=== PATIENT | female | born 1965 | race Caucasian/White ===

== ENCOUNTER 2023-04-03 10:56 | Day surgery (SDC) | payer OTHER ==
[~2023-04-03] VITALS: Ht 149.9 cm; Wt 55.6 kg
[~2023-04-03 10:56] MED LIST: AMOX500 PO; HYDACE5 PO; LOVA40 PO; RANI150 PO
[2023-04-03] MEDS ORDERED: VENL150ER (11:31)
[2023-04-03 13:31] VITALS: BP 123/67
== END 2023-04-03 13:33 | disposition home or self-care (01) ==
LOC: ORSCSDS 10:56
PROVIDERS: Internal Medicine Gastroenterology
PROC: 0DB58ZX Excision of Esophagus, Via Natural or Artificial Opening Endoscopic, Diagnostic (ICD-10-PCS; principal; 2023-04-03 12:30)
PROC: 0D758ZZ Dilation of Esophagus, Via Natural or Artificial Opening Endoscopic (ICD-10-PCS; principal; 2023-04-03 12:30)
PROC: 0DBN8ZX Excision of Sigmoid Colon, Via Natural or Artificial Opening Endoscopic, Diagnostic (ICD-10-PCS; principal; 2023-04-03 12:30)
PROC: 0DBK8ZX Excision of Ascending Colon, Via Natural or Artificial Opening Endoscopic, Diagnostic (ICD-10-PCS; principal; 2023-04-03 12:30)
PROC: 0DBH8ZX Excision of Cecum, Via Natural or Artificial Opening Endoscopic, Diagnostic (ICD-10-PCS; principal; 2023-04-03 12:30)
DX: R13.10 Dysphagia, unspecified (principal); R19.4 Change in bowel habit; Z86.010 Personal history of colon polyps; Z80.0 Family history of malignant neoplasm of digestive organs; D12.0 Benign neoplasm of cecum; D12.2 Benign neoplasm of ascending colon; K63.5 Polyp of colon; K59.09 Other constipation; K22.2 Esophageal obstruction; K44.9 Diaphragmatic hernia without obstruction or gangrene; F17.210 Nicotine dependence, cigarettes, uncomplicated
CPT/HCPCS: 88305; C1726; J2704; J7120

== ENCOUNTER 2024-06-08 06:22 | Day surgery (SDC) | payer OTHER ==
[~2024-06-08] VITALS: Ht 149.9 cm; Wt 57.4 kg
[~2024-06-08 06:22] MED LIST changes: +VENL150ER
[2024-06-08] MEDS ORDERED: NS 50 ML IV ONE (06:27)
[2024-06-08] MEDS ORDERED: CeFAZolin Sodium 2,000 MG VIAL ONE (06:27)
[2024-06-08] MEDS ORDERED: MELO7.5 PO (06:44)
[2024-06-08] MEDS ORDERED: ACET500 PO (06:45)
[2024-06-08] MEDS ORDERED: LORA10ER PO (06:45)
[2024-06-08] MEDS ORDERED: propofoL 20 ML IV ONE (06:55)
[2024-06-08] MEDS ORDERED: Rocuronium Bromide 10 MG/ML 5ML Injection IV ONE (06:55)
[2024-06-08] MEDS ORDERED: FentaNYL Citrate 50 MCG/ML 2 ML Injection ONE (06:55)
--- NOTE | 2024-06-08 06:55 | NUR ---
06/08/24 0655 Alma Perdomo NO QUESTIONS OR CONCERS AT THIS TIME
[2024-06-08] MEDS ORDERED: Midazolam HCl 1MG / ML 2ML Vial ONE (06:56)
[2024-06-08] MEDS ORDERED: Lactated Ringer's 1,000 ML IV ONE (06:59)
[2024-06-08] MEDS ORDERED: Ropivacaine 0.5% HCL/PF 5 MG/ML 30ML Vial ONE (07:12)
[2024-06-08] MEDS ORDERED: Dexamethasone Sod Phos 10 MG/ML 1ML VIAL ONE (07:47)
[2024-06-08] MEDS ORDERED: Ondansetron HCl 2 MG / ML 2ML Vial ONE (07:47)
[2024-06-08] MEDS ORDERED: Sugammadex Sodium 200 MG/2ML SDV (100 MG/ML) ONE (08:00)
[2024-06-08] MEDS ORDERED: EPINEPhrine HCl 1 MG/ML 1ML Amp XX ONE (08:03)
--- NOTE | 2024-06-08 08:07 | NUR ---
06/08/24 0807 Katie Chilel 1 MG EPI ADDED TO THE FIRST BAG OF LR FOR IRRIGATION AT [facility].
[2024-06-08] MEDS ORDERED: Ipratropium/Albuterol SulF 2.5-0.5MG/3 ML Amp ONE (09:00)
--- NOTE | 2024-06-08 09:00 | NUR ---
06/08/24 0900 MAINOR MARQUES ATTEMPTED TO TAKE PT OFF O2 WHEN SHE WOKE. PT ON 3L VIA N/C. DESAT AND HAD TO PUT PT BACK ON OXYGEN. WOKE COUGHING, WET. WHEEZING NOTED AND JANIS WHEATLEY ADVISED TO GIVE DUONEB
[2024-06-08 09:12] VITALS: BP 155/77
--- NOTE | 2024-06-08 09:17 | NUR ---
06/08/24 0917 MAINOR MARQUES PT WANTS O2 OFF. DRYING OUT LEFT NOSTRIL SHE STATES . TRIAL OFF O2 CURRENTLY 98%
== END 2024-06-08 10:01 | disposition home or self-care (01) ==
LOC: ORSCSDS 06:22
PROVIDERS: Orthopaedic Surgery
PROC: 0RBJ4ZZ Excision of Right Shoulder Joint, Percutaneous Endoscopic Approach (ICD-10-PCS; principal; 2024-06-08 07:30)
DX: M75.41 Impingement syndrome of right shoulder (principal); M77.9 Enthesopathy, unspecified; F17.210 Nicotine dependence, cigarettes, uncomplicated; F32.A Depression, unspecified; Z79.899 Other long term (current) drug therapy
CPT/HCPCS: J0171; J0690; J1100; J2250; J2405; J2704; J2795; J3010